=== PATIENT | female | born 1950 | race Caucasian/White ===

== ENCOUNTER 2020-04-19 11:37 | Outpatient (CLI) | payer MEDICARE ==
--- NOTE | 2020-04-19 12:37 | ULT ---
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 COMPARISON: None FINDINGS: Right thyroid lobe: The right thyroid lobe measures 4.2 x 1.6 x 2.1 cm. There is a 1.4 cm mixed echog enicity solid nodule within the mid to lower pole of the right thyroid gland. Thyroid isthmus: The thyroid isthmus measures 0.55 cm. Left thyroid lobe: The left thyroid lobe measures 4.2 x 1.6 x 1.5 cm. Diffusely heterogeneous IMPRESSION: 1. TIRADS 3 lesion involving the mid to lower pole right thyroid gland. No sonographic follow up shaw mmended.
--- NOTE | 2020-04-19 12:38 | ULT ---
EXAM: US Neck Soft Tissue DATE: 04/19/2020 11:38 AM INDICATION: History of breast cancer and chest wall tumor status post radiation therapy. Concern for a palpable region in the left neck COMPARISON: None. FINDING: Submitted sonographic images demonstrate a nonpathologically enlarged lymph node within the palpable region of concern measuring 0.5 x 1.2 cm. Similar-appearing lymph lymph node is seen in the contralateral right neck. IMPRESSION:Nonsuspicious appearing and nonpathologically enlarged lymph node corresponds to the palpa ble region of concern within the left aspect of the neck.
== END 2020-04-19 11:38 | disposition home or self-care (01) ==
LOC: SCSULT 11:37
PROVIDERS: ATTEND Nurse Practitioner Family
DX: E04.9 Nontoxic goiter, unspecified (principal); R59.0 Localized enlarged lymph nodes; E07.89 Other specified disorders of thyroid
CPT/HCPCS: 76536